=== PATIENT | female | born 1985 | race Caucasian/White ===

== ENCOUNTER 2024-11-18 10:30 | Emergency (ER) | payer SELFPAY ==
[2024-11-18] VITALS (8 sets, daily range): BP systolic 58–121; BP diastolic 31–92
--- NOTE | 2024-11-18 10:35 | ED.GENMED ---
History of Present Illness
General
Chief Complaint: Abdominal Symptoms
Source: patient
Exam Limitations: none
Time Seen by Provider: 11/18/24 10:32
Nursing documentation reviewed up to this point in time: agreed with
History of Present Illness
History of Present Illness:
Patient with history of gastric bypass 8 years ago at [facility], who subsequently developed gastric ulcer post op, presents to ED secondary to sudden onset of abdominal pain, shortly after waking up this morning. Abdominal pain
described as sharp, diffuse, without any alleviating or exacerbate factors. Patient also does report 1 loose bowel movement this morning. Patient denies recent illness. Denies recent change in medications today. Patient does not drink alcohol.
Denies trauma. Denies recent change in diet. Denies previous history of similar symptoms. Patient was given 50 mcg of fentanyl en route by paramedics, with minimal relief in symptoms.
Review of Systems
Review of Systems
Allergies reviewed?: Yes
All Other Systems: ROS reviewed and negative except as documented in HPI and ROS
Constitutional: Reports no symptoms; Denies fever or chills
Respiratory: Reports no symptoms; Denies trouble breathing
Cardiac: Reports no symptoms
ABD/GI: Reports abdominal pain and diarrhea
Musculoskeletal: Reports no symptoms
Skin: Reports no symptoms
Neurological: Reports no symptoms
Phy Exam
Physical Exam
Physical Exam:
Physical Exam
General: moderate painful distress, acutely ill. afebrile
Head: nc/at. eomi
Neck: supple. no meningeal signs.
Heart: s1/s2 regular rate and rhythm, no murmur.
Lungs: no acute respiratory distress. clear bilaterally
Abdomen: normal bowel sounds. moderate diffuse tenderness to palpation. rectal exam (LUZ MARIA Redmond, at bedside): brown stool, trace heme positive
Neuro: alert and oriented x 3. no focal neurological deficits
Skin: no rash
Psychiatric: well kept. interactive and cooperative
Extremities: no edema. no calf tenderness.
Course
Orders/Labs/Results
Orders:
Orders
11/18/24 10:32
HYDROmorphone [Dilaudid] 0.5 mg IV NOW STA
Pantoprazole [Protonix IV] 40 mg IV NOW STA
Test Result ONCE
Chest X-ray Portable [CR Chest Portable - 1 View] Urgent
Comment:
Reason For Exam: upper abdominal pain
Reason Study Needs to be Portable: Patient Unstable
11/18/24 10:33
Urinalysis Reflex To Culture Urgent
0.9% Sodium Chloride 500 ml [Nss] 500 ml IV BOLUS
11/18/24 10:39
0.9% Sodium Chloride [Nss (Preservative Free)] 10 ml IV NOW STA
11/18/24 10:47
Complete Blood Count/With Diff Urgent
Comprehensive Metabolic Panel Urgent
Ferritin Urgent
HCG, Serum Qualitative Screen Urgent
Iron Urgent
Lipase Urgent
Magnesium Urgent
Total Iron Binding Urgent
11/18/24 11:14
CT Abd/pelvis W Iv Cont Urgent
Comment:
Reason For Exam: periumbilical pain
11/18/24 11:32
Add On- LAB Urgent
Tests Added?: Iron, ferritin, TIBC
11/18/24 11:50
HYDROmorphone [Dilaudid] 0.5 mg IV NOW STA
11/18/24 11:59
Type+Screen Urgent
Hematocrit Urgent
Hemoglobin Urgent
11/18/24 12:05
* Blood Bank Products Urgent
Blood Bank Products: *Packed RBC Leuko(PRBC's)
Quantity: 2
Transfuse Today: Yes
Reason: Anemia
IV Insert/Care/Rem.- Treatment PRN
11/18/24 13:18
ABO2 Urgent
Arden ReedK Wristband Number:
Associate notified that ABO2 has been ordered: [id number]
Date: 11/18/24
Time: 12:08
Debone Supervisor ID: [id number]
Abnormal Lab Results
11/18/24 11/18/24
10:47 11:59
WBC 4.6 L 10^3/uL
(4.8-10.8)
RBC 3.53 L 10^6/uL
(4.20-5.40)
Hgb 5.8 L* g/dL 6.6 L* g/dL
(12.0-16.0) (12.0-16.0)
Hct 21.3 L % 24.4 L %
(37.0-47.0) (37.0-47.0)
MCV 60.3 L fL
(81.0-99.0)
MCH 16.4 L pg
(27.0-31.0)
MCHC 27.2 L g/dL
(33.0-37.0)
RDW 18.9 H %
(11.5-14.5)
Monocytes % 10.5 H %
(1.7-9.3)
Chloride 109 H mmol/L
(98-107)
Iron < 20 L ug/dl
(37-170)
Ferritin 3.4 L ng/ml
(6.24-137)
Total Protein 5.8 L g/dl
(6.3-8.2)
11/18/24 11:59
11/18/24 10:47
Vital Signs
Initial and Last Documented VS:
Initial Vital Signs
Temp Pulse Resp Pulse Ox
97.6 F 89 15 95
11/18/24 10:32 11/18/24 10:32 11/18/24 10:32 11/18/24 10:32
Last Documented Vital Signs
Temp Pulse Resp BP Pulse Ox
97.6 F 76 14 120/92 95
11/18/24 10:32 11/18/24 13:00 11/18/24 10:35 11/18/24 10:35 11/18/24 11:05
MDM/Problems Addressed
MDM/Problems Addressed:
H/H noted. Patient states that when she had her last blood work done over 6 years ago, her hemoglobin was around 7.5. Patient was advised for an outpatient evaluation, but has not been done, as patient has not had medical insurance.
Blood transfusion consent on the chart. Patient will be transfused 2 units of PRBC, as she is symptomatic.
CT abdomen pelvis reviewed and discussed with patient.
Discussed with , surgery, via [employer]. In light of patient's previous history of gastric bypass surgery, feels that patient will benefit from transfer and treatment at bariatric facility, i.e. [facility] where she had
procedure.
Transfer consent on the chart.
Patient remains hemodynamically stable during observation.
Discussed with (bariatric surgeon @ [facility]) - recommends transfer to ED at this time, in light of sig. pain.
ED Attending Note
-
Portions of this chart may have been created with voice recognition software.� Occasional wrong word or��sound alike� substitutions may have occurred due to the inherent limitations of voice recognition software.
Discharge Plan
Departure
Patient Disposition: Acute Care Hospital
Date of Disposition: 11/18/24
Time of Disposition: 12:55
Admit to: Med/Surg
Discharge Problem:
Intussusception, Anemia
Hospital Transfer
Other hospital: [facility]
I certify that the patient requires transfer: Yes
Discussed case with accepting physician:
Reason for transfer: medical necessity, availability of service and specialties available
Interventions
Interventions:
*Risk Screen - Suicide Last Done: 11/18/24 11:04
*General Assessment Last Done: 11/18/24 13:40
*Neglect/Abuse Screening Last Done: 11/18/24 11:04
*ED- Fall Risk Assessment Last Done: 11/18/24 11:04
*ED COVID-19 Vaccine History Last Done: 11/18/24 11:04
EP-Sarwxk-Kfnrdyatle Assessment Last Done: 11/18/24 13:41
Discharge Date and Time
Print Language: KOREAN
[2024-11-18] MEDS: DILAUDID 0.5 MG IV ×3 (10:39→15:22)
[2024-11-18] MEDS: NSS 500 IV (10:41)
[2024-11-18] MEDS: PROTONIX IV 40 MG IV (10:42)
[2024-11-18] MEDS: NSS (PRESERVATIVE FREE) 10 ML IV (10:42)
[2024-11-18 11:07] LABS: HCG, Serum Qualitative Screen Negative
[2024-11-18 11:15] LABS: ALT (SGPT) 16 U/L (0-35); AST (SGOT) 21 U/L (14-36); Albumin 3.6 g/dl (3.5-5.0); Alkaline Phosphatase 70 U/L (38-126); Blood Urea Nitrogen 14 mg/dl (7-17); Calcium 9.1 mg/dl (8.4-10.2); Carbon Dioxide 25 mmol/L (22-30); Chloride 109 mmol/L (98-107); Glucose 97 mg/dl (70-99); Lipase 91 U/L (23-300); Magnesium 2.1 mg/dl (1.6-2.3); Potassium 4.2 mmol/L (3.5-5.1); Sodium 140 mmol/L (135-145); Total Bilirubin 0.4 mg/dl (0.2-1.3); Total Protein 5.8 g/dl (6.3-8.2); eGFR > 60.00
[2024-11-18 11:27] LABS: % Basophils 0.9 % (0-2); % Eosinophils 2.6 % (0-6); % Immature Granulocytes 0.2 % (0-0.5); % Monocytes 10.5 % (1.7-9.3); % Neutrophils 52.8 % (42.2-75.2); Absolute Eosinophils 0.1 10^3/uL (0-0.7); Absolute Lymphocytes 1.5 10^3/uL (1.2-3.4); Absolute Monocytes 0.5 10^3/uL (0.1-0.6); Absolute Neutrophils 2.4 10^3/uL (1.4-6.5); Hematocrit 21.3 % (37.0-47.0); Hemoglobin 5.8 g/dL (12.0-16.0); Mean Corp Hgb Conc. 27.2 g/dL (33.0-37.0); Mean Corpuscular Hgb 16.4 pg (27.0-31.0); Mean Corpuscular Volume 60.3 fL (81.0-99.0); Nucleated Red Blood Cells % 0 %; Platelet Count 253 10^3/uL (130-400); Red Blood Cell Count 3.53 10^6/uL (4.20-5.40); Red Cell Dist. Width 18.9 % (11.5-14.5); White Blood Cell Count 4.6 10^3/uL (4.8-10.8)
[2024-11-18 12:21] LABS: Hematocrit 24.4 % (37.0-47.0); Hemoglobin 6.6 g/dL (12.0-16.0)
[2024-11-18 12:37] LABS: Anisocytosis 1+; Hypochromasia 2+; Microcytosis 2+; Normal RBC Morphology No
[2024-11-18 12:38] LABS: Ovalocytes 1+; Schistocytes 1+; Target Cells 1+
[2024-11-18 12:42] LABS: Iron < 20 ug/dl (37-170)
[2024-11-18 12:47] LABS: Total Iron Binding Capacity 403 ug/dl (265-497)
[2024-11-18 13:36] LABS: Ferritin 3.4 ng/ml (6.24-137)
== END 2024-11-18 15:50 | disposition short-term general hospital (02) ==
LOC: EMR 10:30
PROVIDERS: EMERGENCY PHYSICIAN Emergency Medicine
DX: K56.1 Intussusception (principal); D64.9 Anemia, unspecified; Z87.11 Personal history of peptic ulcer disease; Z98.84 Bariatric surgery status; Z59.71 Insufficient health insurance coverage
CPT/HCPCS: 36430; 96374; 96375; 96376; 96361; 99285; 71045; 74177; 80053; 82728; 83540; 83550; 83690; 83735; 84703; 85014; 85018; 85025; 86850; 86900; 86901; 86920; P9016; Q9967